=== PATIENT | male | born 1955 | race Caucasian/White ===

== ENCOUNTER → 2017-03-19 | Outpatient (CLI) | payer OTHER ==
[~2017-03-19] MED LIST: AMLO5TAB2 PO; ATOR40TA PO; BENA1TAB10 PO; METF10002 PO; REGADENOSON 0.4 MG/5 ML SYRINGE ONE; SITA100T PO; TADA10TA PO; WARF4TAB7 PO; WARF5TAB7 PO
== END | disposition home or self-care (01) ==
LOC: CFH 08:55
PROVIDERS: ATTEND Internal Medicine Cardiovascular Disease
DX: I25.10 Atherosclerotic heart disease of native coronary artery without angina pectoris (principal)
CPT/HCPCS: 78452; 93017; A9502; J2785

== ENCOUNTER 2017-05-27 04:30 | Inpatient (IN) | payer OTHER ==
[~2017-05-27] VITALS: Ht 190.5 cm; Wt 86.5 kg
[~2017-05-27 04:30] MED LIST changes: -REGADENOSON 0.4 MG/5 ML SYRINGE ONE
[2017-05-27] MEDS ORDERED: IBUPROFEN 200 MG TABLET PO ONE (05:00)
[2017-05-27] MEDS ORDERED: OXYcodone/APAP 5/325MG TABLET PO ONE (05:00)
[2017-05-27] MEDS ORDERED: DIAZEPAM 5 MG TABLET PO ONE (05:00)
[2017-05-27] MEDS ORDERED: DIAZEPAM 5 MG TABLET ONE (05:01)
[2017-05-27] MEDS ORDERED: IBUPROFEN 200 MG TABLET ONE (05:02)
[2017-05-27] MEDS ORDERED: OXYcodone/APAP 5/325MG TABLET ONE (05:02)
[2017-05-27 06:11] LABS: HEMATOCRIT 47.4 % (39.2-51.8); WHITE BLOOD COUNT 14.6 x10^3/uL (3.4-10)
[2017-05-27 06:22] LABS: BLOOD UREA NITROGEN 14 mg/dL (7-18)
[2017-05-27] MEDS ORDERED: HEPARIN 5,000 UNITS/ML, 1ML IVPush ONE (08:30)
[2017-05-27] MEDS ORDERED: HEPARIN 25,000 UNITS/500ML PMX 500 ML IV PRN (09:00)
[2017-05-27] MEDS ORDERED: HEPARIN 5,000 UNITS/ML, 1ML IV PRN (09:00)
[2017-05-27] MEDS ORDERED: LABETALOL 5MG/ML, 20ML IVPush ONE (09:00)
[2017-05-27] MEDS ORDERED: HYDROmorphone 1 MG/ML, 1ML IV ONE (09:00)
[2017-05-27] MEDS ORDERED: HEPARIN 5,000 UNITS/ML, 1ML IV ONE (09:00)
[2017-05-27] MEDS ORDERED: HEPARIN 5,000 UNITS/ML, 1ML ONE (09:08)
[2017-05-27] MEDS ORDERED: HYDROmorphone 1 MG/ML, 1ML ONE (09:09)
[2017-05-27] MEDS ORDERED: LABETALOL 5MG/ML, 20ML ONE (09:09)
[2017-05-27] MEDS ORDERED: HEPARIN 25,000 UNITS/500ML PMX 500 ML ONE ×2 (09:22→13:24)
[2017-05-27] MEDS ORDERED: LABETALOL 5MG/ML, 20ML IVPush PRN (09:30)
[2017-05-27] MEDS ORDERED: hydrALAzine 20 MG/ML, 1ML IV PRN (09:30)
[2017-05-27] MEDS ORDERED: NS + 20MEQ KCL 1,000 ML IV SCH (09:46)
[2017-05-27] MEDS ORDERED: HYDROcodone/APAP 5/325 TABLET PO PRN (10:00)
[2017-05-27] MEDS ORDERED: ONDANSETRON 2MG/ML, 2ML IVPush PRN ×2 (10:00→15:00)
[2017-05-27] MEDS ORDERED: POLYETHYLENE GLYCOL 17 GM PACKET PO PRN (10:00)
[2017-05-27] MEDS ORDERED: ACETAMINOPHEN 325 MG TABLET PO PRN (10:00)
[2017-05-27] MEDS ORDERED: morphine SULFATE 10 MG/ML, 1ML IVPush PRN ×2 (10:00→15:00)
[2017-05-27] MEDS ORDERED: DOCUSATE 100 MG CAPSULE PO PRN (10:00)
[2017-05-27] MEDS: INSULIN ASPART 100 UNITS/ML, PEN SQ-INSULIN SCH ×3 (11:00→20:25)
[2017-05-27] MEDS ORDERED: LIDOCAINE 2%, 20ML ONE (12:22)
[2017-05-27] MEDS ORDERED: ALTEPLASE 10 MG in SODIUM CHLORIDE 0.9% 90 ML IV SCH (12:30)
[2017-05-27] MEDS ORDERED: PROTAMINE SULFATE 10 MG/ML, 25ML ONE (12:48)
[2017-05-27] MEDS ORDERED: MIDAZOLAM 1 MG/ML, 5ML ONE (12:48)
[2017-05-27] MEDS ORDERED: NALOXONE 1 MG/ML, 2ML ONE (12:49)
[2017-05-27] MEDS ORDERED: HEPARIN 1,000 UNITS/ML, 10ML ONE (12:49)
[2017-05-27] MEDS ORDERED: FLUMAZENIL 0.1 MG/1 ML, 5ML ONE (12:49)
[2017-05-27] MEDS ORDERED: FENTANYL PF 100 MCG/2ML ONE (12:49)
[2017-05-27] MEDS ORDERED: ALTEPLASE IV ONE (13:30)
[2017-05-27 13:32] VITALS: BP 158/79
[2017-05-27] MEDS ORDERED: hydrALAzine 20 MG/ML, 1ML ONE (13:45)
[2017-05-27] MEDS: AMLODIPINE 5 MG TABLET PO SCH (14:46)
[2017-05-27] MEDS: SODIUM CHLORIDE 0.9% 1,000 ML IV SCH (14:50)
[2017-05-27] MEDS: ALTEPLASE 10 MG in SODIUM CHLORIDE 0.9% 90 ML IV SCH (15:00)
[2017-05-27] MEDS: HEPARIN 25,000 UNITS/500ML PMX 500 ML IV SCH ×2 (15:00)
[2017-05-27] MEDS: CLINDAMYCIN PMX 900MG/50ML 50 ML IV SCH ×2 (15:24→23:57)
[2017-05-27 15:56] LABS: HEMATOCRIT 47.3 % (39.2-51.8); HEMOGLOBIN 15.6 g/dL (13.7-18.0); WHITE BLOOD COUNT 10.1 x10^3/uL (3.4-10)
[2017-05-27] MEDS: HYDROcodone/APAP 5/325 TABLET PO PRN ×3 (16:04→23:57)
[2017-05-27] MEDS: ATORVASTATIN 40 MG TABLET PO SCH (19:46)
[2017-05-27 20:56] LABS: HEMATOCRIT 45.4 % (39.2-51.8); HEMOGLOBIN 14.9 g/dL (13.7-18.0)
[2017-05-28 03:07] LABS: HEMATOCRIT 45.4 % (39.2-51.8); HEMOGLOBIN 14.9 g/dL (13.7-18.0); WHITE BLOOD COUNT 11.1 x10^3/uL (3.4-10)
[2017-05-28] MEDS: SODIUM CHLORIDE 0.9% 1,000 ML IV SCH ×2 (03:07→15:08)
[2017-05-28] MEDS: HYDROcodone/APAP 5/325 TABLET PO PRN ×6 (03:08→21:18)
[2017-05-28 04:16] VITALS: BP 145/68
[2017-05-28 04:54] LABS: HEMATOCRIT 44.2 % (39.2-51.8); HEMOGLOBIN 14.7 g/dL (13.7-18.0); WHITE BLOOD COUNT 10.8 x10^3/uL (3.4-10)
[2017-05-28 05:16] LABS: ASPARTATE AMINO TRANSFERASE 211 U/L (15-37); BLOOD UREA NITROGEN 9 mg/dL (7-18)
[2017-05-28] MEDS: CLINDAMYCIN PMX 900MG/50ML 50 ML IV SCH ×2 (06:01→15:08)
[2017-05-28] MEDS: ALTEPLASE 10 MG in SODIUM CHLORIDE 0.9% 90 ML IV SCH ×2 (06:02→06:41)
[2017-05-28] MEDS: INSULIN ASPART 100 UNITS/ML, PEN SQ-INSULIN SCH ×4 (06:04→21:18)
[2017-05-28] MEDS: SENNA/DOCUSATE TABLET PO SCH (07:23)
[2017-05-28] MEDS ORDERED: SITAGLIPTIN 50MG TABLET PO SCH (09:00)
[2017-05-28 09:03] LABS: HEMATOCRIT 45.4 % (39.2-51.8); HEMOGLOBIN 15.1 g/dL (13.7-18.0); WHITE BLOOD COUNT 10.6 x10^3/uL (3.4-10)
[2017-05-28] MEDS: AMLODIPINE 5 MG TABLET PO SCH (09:16)
[2017-05-28 14:50] LABS: HEMATOCRIT 47.8 % (39.2-51.8); HEMOGLOBIN 15.8 g/dL (13.7-18.0)
[2017-05-28] MEDS: HEPARIN 25,000 UNITS/500ML PMX 500 ML IV SCH ×2 (15:00)
[2017-05-28] MEDS ORDERED: FLUMAZENIL 0.1 MG/1 ML, 5ML ONE (15:30)
[2017-05-28] MEDS ORDERED: MIDAZOLAM 1 MG/ML, 5ML ONE (15:30)
[2017-05-28] MEDS ORDERED: FENTANYL PF 100 MCG/2ML ONE (15:30)
[2017-05-28] MEDS ORDERED: NALOXONE 1 MG/ML, 2ML ONE (15:30)
[2017-05-28] MEDS ORDERED: hydrALAzine 20 MG/ML, 1ML ONE (16:28)
[2017-05-28] MEDS: SODIUM ACETATE 100 MEQ in DEXTROSE 5% 1,000 ML IV SCH (17:49)
[2017-05-28 21:06] LABS: HEMATOCRIT 48.8 % (39.2-51.8); WHITE BLOOD COUNT 11.4 x10^3/uL (3.4-10)
[2017-05-28] MEDS: ATORVASTATIN 40 MG TABLET PO SCH (21:18)
[2017-05-29] MEDS: HYDROcodone/APAP 5/325 TABLET PO PRN ×4 (00:01→13:03)
[2017-05-29] MEDS: ALTEPLASE 10 MG in SODIUM CHLORIDE 0.9% 90 ML IV SCH (03:08)
[2017-05-29 03:12] LABS: HEMATOCRIT 43.4 % (39.2-51.8); HEMOGLOBIN 14.5 g/dL (13.7-18.0); WHITE BLOOD COUNT 8.4 x10^3/uL (3.4-10)
[2017-05-29 03:21] LABS: BLOOD UREA NITROGEN 8 mg/dL (7-18)
[2017-05-29] MEDS: SODIUM ACETATE 100 MEQ in DEXTROSE 5% 1,000 ML IV SCH ×2 (05:12→17:34)
[2017-05-29 06:02] VITALS: BP 110/65
[2017-05-29] MEDS: CLINDAMYCIN PMX 900MG/50ML 50 ML IV SCH ×4 (07:09→23:27)
[2017-05-29] MEDS: SENNA/DOCUSATE TABLET PO SCH (07:10)
[2017-05-29] MEDS: AMLODIPINE 5 MG TABLET PO SCH (07:10)
[2017-05-29] MEDS: INSULIN ASPART 100 UNITS/ML, PEN SQ-INSULIN SCH ×4 (07:10→21:12)
[2017-05-29 08:34] LABS: HIT LOT CART23835/KIT23844
[2017-05-29 08:42] LABS: HEMATOCRIT 43.3 % (39.2-51.8); HEMOGLOBIN 14.6 g/dL (13.7-18.0); WHITE BLOOD COUNT 9.4 x10^3/uL (3.4-10)
[2017-05-29 09:25] LABS: HIT OBC PASS; HIT RESULT NEGATIVE (NEGATIVE)
[2017-05-29] MEDS ORDERED: KETAMINE 10 MG/ML, 20ML ONE (10:10)
[2017-05-29] MEDS ORDERED: MIDAZOLAM 1 MG/ML, 2ML ONE (10:11)
[2017-05-29] MEDS ORDERED: FENTANYL PF 100 MCG/2ML ONE ×2 (10:11)
[2017-05-29] MEDS ORDERED: DEXAMETHASONE 4 MG/ML, 1ML ONE (10:42)
[2017-05-29] MEDS ORDERED: ONDANSETRON 2MG/ML, 2ML ONE (10:42)
[2017-05-29] MEDS ORDERED: PHENYLEPHRINE 10 MG/ML ONE (10:42)
[2017-05-29] MEDS ORDERED: CEFAZOLIN 1,000 MG ONE (10:42)
[2017-05-29] MEDS ORDERED: PROPOFOL 10 MG/ML, 20ML ONE (10:42)
[2017-05-29] MEDS ORDERED: ACETAMINOPHEN 325 MG TABLET PO PRN (12:00)
[2017-05-29] MEDS ORDERED: ONDANSETRON 2MG/ML, 2ML IVPush PRN (12:00)
[2017-05-29] MEDS ORDERED: MIDAZOLAM 1 MG/ML, 2ML IV PRN (12:00)
[2017-05-29] MEDS ORDERED: HYDROmorphone 1 MG/ML, 1ML IV PRN (12:00)
[2017-05-29] MEDS ORDERED: PROMETHAZINE 25 MG/ML, 1ML IV PRN (12:00)
[2017-05-29] MEDS ORDERED: FENTANYL PF 100 MCG/2ML IV PRN (12:00)
[2017-05-29] MEDS ORDERED: hydrALAzine 20 MG/ML, 1ML IV PRN (12:00)
[2017-05-29] MEDS ORDERED: LABETALOL 5MG/ML, 20ML IV PRN (12:00)
[2017-05-29] MEDS ORDERED: HYDROcodone/APAP 7.5-325MG/15ML UDC PO PRN (12:00)
[2017-05-29] MEDS ORDERED: MEPERIDINE/PF 25MG/0.5ML IVPush PRN (12:00)
[2017-05-29] MEDS ORDERED: EPHEDRINE 50 MG/ML, 1ML IVPush PRN (12:00)
[2017-05-29] MEDS: HEPARIN 25,000 UNITS/500ML PMX 500 ML IV PRN (13:49)
[2017-05-29] MEDS ORDERED: WARFARIN 5 MG TABLET PO-COUM SCH (18:00)
[2017-05-29] MEDS: ATORVASTATIN 40 MG TABLET PO SCH (21:11)
[2017-05-30] MEDS: SODIUM ACETATE 100 MEQ in DEXTROSE 5% 1,000 ML IV SCH (02:15)
[2017-05-30 03:17] LABS: HEMATOCRIT 42.3 % (39.2-51.8); HEMOGLOBIN 13.9 g/dL (13.7-18.0); WHITE BLOOD COUNT 11.4 x10^3/uL (3.4-10)
[2017-05-30 03:22] LABS: BLOOD UREA NITROGEN 11 mg/dL (7-18)
[2017-05-30 05:00] VITALS: BP 152/81
[2017-05-30] MEDS: ASPIRIN 81 MG TABLET EC PO SCH (06:29)
[2017-05-30] MEDS: INSULIN ASPART 100 UNITS/ML, PEN SQ-INSULIN SCH ×4 (06:32→20:37)
[2017-05-30] MEDS: OXYcodone 5 MG/5 ML ORAL.SOL UDC PO PRN ×2 (08:24→12:10)
[2017-05-30] MEDS: CLINDAMYCIN PMX 900MG/50ML 50 ML IV SCH ×2 (08:26→16:02)
[2017-05-30] MEDS: HEPARIN 25,000 UNITS/500ML PMX 500 ML IV PRN (09:54)
[2017-05-30] MEDS: AMLODIPINE 5 MG TABLET PO SCH (11:14)
[2017-05-30] MEDS ORDERED: HEPARIN 5,000 UNITS/ML, 1ML IV PRN (13:00)
[2017-05-30 13:45] VITALS: BP 140/87
[2017-05-30] MEDS ORDERED: WARFARIN 2 MG TABLET PO-COUM ONE (18:00)
[2017-05-30] MEDS: OXYcodone IR 5MG TABLET PO PRN (20:17)
[2017-05-30] MEDS: ATORVASTATIN 40 MG TABLET PO SCH (20:17)
[2017-05-30 20:31] VITALS: BP 138/76
[2017-05-31] MEDS: CLINDAMYCIN PMX 900MG/50ML 50 ML IV SCH ×2 (01:43→10:45)
[2017-05-31 02:00] VITALS: BP 135/72
[2017-05-31 05:49] LABS: HEMATOCRIT 42.6 % (39.2-51.8); HEMOGLOBIN 14.2 g/dL (13.7-18.0); WHITE BLOOD COUNT 14.2 x10^3/uL (3.4-10)
[2017-05-31] MEDS: ASPIRIN 81 MG TABLET EC PO SCH (06:15)
[2017-05-31 07:54] VITALS: BP 134/82
[2017-05-31] MEDS: AMLODIPINE 5 MG TABLET PO SCH (07:59)
[2017-05-31] MEDS: INSULIN ASPART 100 UNITS/ML, PEN SQ-INSULIN SCH ×4 (07:59→22:37)
[2017-05-31] MEDS: OXYcodone IR 5MG TABLET PO PRN ×3 (09:23→22:07)
[2017-05-31] MEDS ORDERED: POLYETHYLENE GLYCOL 17 GM PACKET PO PRN (15:30)
[2017-05-31] MEDS ORDERED: ONDANSETRON 2MG/ML, 2ML IVPush PRN (15:30)
[2017-05-31] MEDS ORDERED: LABETALOL 5MG/ML, 20ML IVPush PRN (15:30)
[2017-05-31 15:44] VITALS: BP 140/83
[2017-05-31] MEDS ORDERED: WARFARIN 2 MG TABLET PO-COUM SCH (18:00)
[2017-05-31 20:49] VITALS: BP 146/80
[2017-05-31] MEDS: ATORVASTATIN 40 MG TABLET PO SCH (22:07)
[2017-06-01 00:35] VITALS: BP 163/100
[2017-06-01 01:20] VITALS: BP 139/83
[2017-06-01 04:49] LABS: HEMATOCRIT 41.7 % (39.2-51.8); HEMOGLOBIN 13.9 g/dL (13.7-18.0); WHITE BLOOD COUNT 13.5 x10^3/uL (3.4-10)
[2017-06-01] MEDS: ASPIRIN 81 MG TABLET EC PO SCH (06:59)
[2017-06-01] MEDS: INSULIN ASPART 100 UNITS/ML, PEN SQ-INSULIN SCH ×4 (07:46→20:47)
[2017-06-01 07:47] VITALS: BP 132/81
[2017-06-01] MEDS: AMLODIPINE 5 MG TABLET PO SCH (09:37)
[2017-06-01 16:00] VITALS: BP 121/67
[2017-06-01] MEDS ORDERED: WARFARIN 2.5 MG TABLET PO-COUM SCH (18:00)
[2017-06-01 19:41] VITALS: BP 134/80
[2017-06-01] MEDS: ATORVASTATIN 40 MG TABLET PO SCH (20:42)
[2017-06-02] MEDS: OXYcodone IR 5MG TABLET PO PRN ×3 (00:22→22:17)
[2017-06-02] MEDS: ACETAMINOPHEN 325 MG TABLET PO PRN ×2 (00:22→22:17)
[2017-06-02 02:43] VITALS: BP 134/84
[2017-06-02 05:42] LABS: BLOOD UREA NITROGEN 15 mg/dL (7-18); HEMATOCRIT 41.5 % (39.2-51.8); HEMOGLOBIN 13.8 g/dL (13.7-18.0); WHITE BLOOD COUNT 11.7 x10^3/uL (3.4-10)
[2017-06-02] MEDS: ASPIRIN 81 MG TABLET EC PO SCH (06:03)
[2017-06-02] MEDS: INSULIN ASPART 100 UNITS/ML, PEN SQ-INSULIN SCH ×4 (07:33→20:35)
[2017-06-02] MEDS: AMLODIPINE 5 MG TABLET PO SCH (07:33)
[2017-06-02 07:35] VITALS: BP 139/81
[2017-06-02 15:57] VITALS: BP 134/76
[2017-06-02] MEDS ORDERED: WARFARIN 2 MG TABLET PO-COUM SCH (18:00)
[2017-06-02 19:25] VITALS: BP 144/82
[2017-06-02] MEDS: ATORVASTATIN 40 MG TABLET PO SCH (20:34)
[2017-06-03 01:23] VITALS: BP 145/80
[2017-06-03] MEDS: OXYcodone IR 5MG TABLET PO PRN ×4 (06:05→22:00)
[2017-06-03] MEDS: ASPIRIN 81 MG TABLET EC PO SCH (06:05)
[2017-06-03 07:46] VITALS: BP 124/72
[2017-06-03] MEDS: INSULIN ASPART 100 UNITS/ML, PEN SQ-INSULIN SCH ×4 (08:49→21:32)
[2017-06-03] MEDS: AMLODIPINE 5 MG TABLET PO SCH (08:49)
[2017-06-03 12:22] VITALS: BP 124/75
[2017-06-03] MEDS ORDERED: WARFARIN 2 MG TABLET PO-COUM ONE (18:00)
[2017-06-03 20:35] VITALS: BP 124/74
[2017-06-03] MEDS: ATORVASTATIN 40 MG TABLET PO SCH (21:31)
[2017-06-04] MEDS: OXYcodone IR 5MG TABLET PO PRN ×4 (02:39→21:43)
[2017-06-04 03:42] VITALS: BP 120/85
[2017-06-04] MEDS: ASPIRIN 81 MG TABLET EC PO SCH (06:04)
[2017-06-04] MEDS ORDERED: EPINEPHRINE 1 MG/ML, 1ML ONE (06:13)
[2017-06-04] MEDS ORDERED: BUPIVACAINE/PF 0.25% ONE (06:14)
[2017-06-04 06:24] LABS: HEMATOCRIT 39.5 % (39.2-51.8); HEMOGLOBIN 13.1 g/dL (13.7-18.0); WHITE BLOOD COUNT 10.3 x10^3/uL (3.4-10)
[2017-06-04 06:36] LABS: BLOOD UREA NITROGEN 16 mg/dL (7-18)
[2017-06-04] MEDS: INSULIN ASPART 100 UNITS/ML, PEN SQ-INSULIN SCH ×4 (07:23→21:42)
[2017-06-04 08:00] VITALS: BP 125/83
[2017-06-04] MEDS: AMLODIPINE 5 MG TABLET PO SCH (09:46)
[2017-06-04] MEDS ORDERED: MIDAZOLAM 1 MG/ML, 2ML ONE (13:42)
[2017-06-04] MEDS ORDERED: FENTANYL PF 100 MCG/2ML ONE (13:43)
[2017-06-04] MEDS ORDERED: PROPOFOL 10 MG/ML, 20ML ONE (14:14)
[2017-06-04] MEDS ORDERED: CEFAZOLIN 1,000 MG ONE (14:14)
[2017-06-04] MEDS ORDERED: PROMETHAZINE 25 MG/ML, 1ML IV PRN (14:30)
[2017-06-04] MEDS ORDERED: FENTANYL PF 100 MCG/2ML IV PRN (14:30)
[2017-06-04] MEDS ORDERED: HYDROmorphone 1 MG/ML, 1ML IV PRN (14:30)
[2017-06-04] MEDS ORDERED: ACETAMINOPHEN 325 MG TABLET PO PRN (14:30)
[2017-06-04] MEDS ORDERED: OXYcodone 5 MG/5 ML ORAL.SOL UDC PO PRN (14:30)
[2017-06-04] MEDS ORDERED: hydrALAzine 20 MG/ML, 1ML IV PRN (14:30)
[2017-06-04] MEDS ORDERED: OXYcodone 5 MG/5 ML ORAL.SOL UDC ONE (15:29)
[2017-06-04] MEDS ORDERED: WARFARIN 2 MG TABLET PO-COUM ONE (18:00)
[2017-06-04 19:54] VITALS: BP 123/74
[2017-06-04] MEDS: ATORVASTATIN 40 MG TABLET PO SCH (21:43)
[2017-06-04] MEDS: CEFAZOLIN PMX 2GM/50ML 50 ML IVPB SCH (21:43)
[2017-06-04 23:08] VITALS: BP 120/66
[2017-06-05 03:00] VITALS: BP 113/70
[2017-06-05] MEDS: CEFAZOLIN PMX 2GM/50ML 50 ML IVPB SCH ×2 (06:16→14:40)
[2017-06-05] MEDS: OXYcodone IR 5MG TABLET PO PRN ×3 (06:16→21:32)
[2017-06-05] MEDS: ASPIRIN 81 MG TABLET EC PO SCH (06:16)
[2017-06-05 07:45] VITALS: BP 116/69
[2017-06-05] MEDS: INSULIN ASPART 100 UNITS/ML, PEN SQ-INSULIN SCH ×4 (09:07→21:00)
[2017-06-05] MEDS: SITAGLIPTIN 50MG TABLET PO SCH (09:07)
[2017-06-05] MEDS: AMLODIPINE 5 MG TABLET PO SCH (09:07)
[2017-06-05 15:30] VITALS: BP 119/73
[2017-06-05 20:20] VITALS: BP 126/74
[2017-06-05] MEDS: ATORVASTATIN 40 MG TABLET PO SCH (21:32)
[2017-06-06 02:20] VITALS: BP 114/84
[2017-06-06] MEDS: OXYcodone IR 5MG TABLET PO PRN ×4 (02:42→14:49)
[2017-06-06] MEDS: ASPIRIN 81 MG TABLET EC PO SCH (06:36)
[2017-06-06] MEDS: INSULIN ASPART 100 UNITS/ML, PEN SQ-INSULIN SCH ×3 (06:36→16:54)
[2017-06-06 08:29] VITALS: BP 113/67
[2017-06-06] MEDS: SITAGLIPTIN 50MG TABLET PO SCH (08:54)
[2017-06-06] MEDS: AMLODIPINE 5 MG TABLET PO SCH (08:54)
[2017-06-06] MEDS ORDERED: OXYC5TAB3 PO (09:47)
[2017-06-06 15:52] VITALS: BP 146/91
[2017-06-06] MEDS ORDERED: WARFARIN 2 MG TABLET PO-COUM SCH (18:00)
== END 2017-06-06 17:58 | disposition home health service (06) | DRG 264 ==
LOC: ED 05:23 → 4EST 08:48 → SUATTDRO 09:25 → 4EST 11:16 → CCU 14:14 → 4NOR 05-30 13:42
PROVIDERS: ADMIT Family Medicine
PROC: 3E03317 Introduction of Other Thrombolytic into Peripheral Vein, Percutaneous Approach (ICD-10-PCS; principal; 2017-05-27)
PROC: B41D1ZZ Fluoroscopy of Aorta and Bilateral Lower Extremity Arteries using Low Osmolar Contrast (ICD-10-PCS; 2017-05-27)
PROC: B41G1ZZ Fluoroscopy of Left Lower Extremity Arteries using Low Osmolar Contrast (ICD-10-PCS; 2017-05-27)
PROC: B41F1ZZ Fluoroscopy of Right Lower Extremity Arteries using Low Osmolar Contrast (ICD-10-PCS; 2017-05-27)
PROC: 0KNT0ZZ Release Left Lower Leg Muscle, Open Approach (ICD-10-PCS; 2017-05-29)
PROC: 0KNT0ZZ Release Left Lower Leg Muscle, Open Approach (ICD-10-PCS; 2017-05-29)
PROC: 0KNT0ZZ Release Left Lower Leg Muscle, Open Approach (ICD-10-PCS; 2017-05-29)
PROC: 0KNT0ZZ Release Left Lower Leg Muscle, Open Approach (ICD-10-PCS; 2017-05-29)
PROC: B41F1ZZ Fluoroscopy of Right Lower Extremity Arteries using Low Osmolar Contrast (ICD-10-PCS; 2017-05-29)
PROC: B41G1ZZ Fluoroscopy of Left Lower Extremity Arteries using Low Osmolar Contrast (ICD-10-PCS; 2017-05-29)
PROC: 0JBP0ZZ Excision of Left Lower Leg Subcutaneous Tissue and Fascia, Open Approach (ICD-10-PCS; 2017-06-04)
DX: I74.3 Embolism and thrombosis of arteries of the lower extremities (principal); D68.69 Other thrombophilia; E87.1 Hypo-osmolality and hyponatremia; I48.2 Chronic atrial fibrillation; S81.802A Unspecified open wound, left lower leg, initial encounter; D64.9 Anemia, unspecified; E11.9 Type 2 diabetes mellitus without complications; I10 Essential (primary) hypertension; D72.829 Elevated white blood cell count, unspecified; F17.200 Nicotine dependence, unspecified, uncomplicated; I73.9 Peripheral vascular disease, unspecified; I99.8 Other disorder of circulatory system; X58.XXXA Exposure to other specified factors, initial encounter; Z79.01 Long term (current) use of anticoagulants; Z80.8 Family history of malignant neoplasm of other organs or systems; Z82.49 Family history of ischemic heart disease and other diseases of the circulatory system; Z83.3 Family history of diabetes mellitus; Z86.711 Personal history of pulmonary embolism; Z86.718 Personal history of other venous thrombosis and embolism; Z95.0 Presence of cardiac pacemaker; Z88.0 Allergy status to penicillin; Y93.89 Activity, other specified; Y92.89 Other specified places as the place of occurrence of the external cause; Y99.8 Other external cause status
CPT/HCPCS: 36415; 37211; 37213; 37214; 75716; 80048; 80053; 82040; 82550; 82962; 83735; 85025; 85520; 85610; 86022; 86850; 86900; 87081; 93005; 93306; 93922; 93925; 93970; 96365; 96375; 99156; 99157; J0171; J0690; J1100; J1170; J1644; J1815; J2250; J2405; J2704; J2720; J2997; J3010; J3490; J7070; C1751; C1769; C1894; J0360; J2270; J2310; J2370; J7030

== ENCOUNTER → 2017-06-11 | Outpatient (CLI) | payer OTHER ==
[~2017-06-11] MED LIST changes: +OXYC5TAB3 PO
== END | disposition home or self-care (01) ==
LOC: WOUND 08:49
PROVIDERS: ATTEND Internal Medicine
DX: T81.31XA Disruption of external operation (surgical) wound, not elsewhere classified, initial encounter (principal); E11.69 Type 2 diabetes mellitus with other specified complication; I48.2 Chronic atrial fibrillation; I10 Essential (primary) hypertension; Z87.891 Personal history of nicotine dependence; Z72.89 Other problems related to lifestyle; Z95.0 Presence of cardiac pacemaker; Z79.01 Long term (current) use of anticoagulants; Z86.718 Personal history of other venous thrombosis and embolism; E11.51 Type 2 diabetes mellitus with diabetic peripheral angiopathy without gangrene; Z48.01 Encounter for change or removal of surgical wound dressing; Y92.89 Other specified places as the place of occurrence of the external cause; Y83.8 Other surgical procedures as the cause of abnormal reaction of the patient, or of later complication, without mention of misadventure at the time of the procedure
CPT/HCPCS: 97606; 99215

== ENCOUNTER → 2017-06-18 | Outpatient (CLI) | payer OTHER | END | disposition home or self-care (01) | LOC: WOUND 08:31 | PROVIDERS: ATTEND Internal Medicine | DX: T81.31XD Disruption of external operation (surgical) wound, not elsewhere classified, subsequent encounter (principal); E11.51 Type 2 diabetes mellitus with diabetic peripheral angiopathy without gangrene; I48.2 Chronic atrial fibrillation; I10 Essential (primary) hypertension; Z79.01 Long term (current) use of anticoagulants; Z72.89 Other problems related to lifestyle; Z87.891 Personal history of nicotine dependence; Z86.718 Personal history of other venous thrombosis and embolism; Z95.0 Presence of cardiac pacemaker; Z48.01 Encounter for change or removal of surgical wound dressing; Y83.8 Other surgical procedures as the cause of abnormal reaction of the patient, or of later complication, without mention of misadventure at the time of the procedure | CPT/HCPCS: 11042; 11045; 97606 ==

== ENCOUNTER → 2017-06-25 | Outpatient (CLI) | payer OTHER | END | disposition home or self-care (01) | LOC: WOUND 08:47 | PROVIDERS: ATTEND Internal Medicine | DX: T81.31XD Disruption of external operation (surgical) wound, not elsewhere classified, subsequent encounter (principal); I10 Essential (primary) hypertension; I48.2 Chronic atrial fibrillation; E11.51 Type 2 diabetes mellitus with diabetic peripheral angiopathy without gangrene; F17.210 Nicotine dependence, cigarettes, uncomplicated; Z79.01 Long term (current) use of anticoagulants; Z72.89 Other problems related to lifestyle; Z95.0 Presence of cardiac pacemaker; Z86.718 Personal history of other venous thrombosis and embolism; Z86.711 Personal history of pulmonary embolism; Y83.8 Other surgical procedures as the cause of abnormal reaction of the patient, or of later complication, without mention of misadventure at the time of the procedure | CPT/HCPCS: 11042; 11045; 97606 ==

== ENCOUNTER → 2017-07-02 | Outpatient (CLI) | payer OTHER | END | disposition home or self-care (01) | LOC: WOUND 08:45 | PROVIDERS: ATTEND Internal Medicine | DX: T81.31XD Disruption of external operation (surgical) wound, not elsewhere classified, subsequent encounter (principal); E11.69 Type 2 diabetes mellitus with other specified complication; E11.51 Type 2 diabetes mellitus with diabetic peripheral angiopathy without gangrene; I48.2 Chronic atrial fibrillation; Z86.718 Personal history of other venous thrombosis and embolism; Z86.711 Personal history of pulmonary embolism; Z79.01 Long term (current) use of anticoagulants; Z72.89 Other problems related to lifestyle; Z95.0 Presence of cardiac pacemaker; F17.210 Nicotine dependence, cigarettes, uncomplicated; Y83.8 Other surgical procedures as the cause of abnormal reaction of the patient, or of later complication, without mention of misadventure at the time of the procedure | CPT/HCPCS: 11042; 11045; 97606 ==

== ENCOUNTER → 2017-07-09 | Outpatient (CLI) | payer OTHER | END | disposition home or self-care (01) | LOC: WOUND 08:27 | PROVIDERS: ATTEND Internal Medicine | DX: T81.31XD Disruption of external operation (surgical) wound, not elsewhere classified, subsequent encounter (principal); I48.2 Chronic atrial fibrillation; E11.51 Type 2 diabetes mellitus with diabetic peripheral angiopathy without gangrene; I10 Essential (primary) hypertension; Z79.01 Long term (current) use of anticoagulants; Z86.718 Personal history of other venous thrombosis and embolism; Z86.711 Personal history of pulmonary embolism; Z87.891 Personal history of nicotine dependence; Z95.0 Presence of cardiac pacemaker; Z72.89 Other problems related to lifestyle; Y83.8 Other surgical procedures as the cause of abnormal reaction of the patient, or of later complication, without mention of misadventure at the time of the procedure | CPT/HCPCS: 11043; 11046; 97606 ==

== ENCOUNTER → 2017-07-23 | Outpatient (CLI) | payer OTHER | END | disposition home or self-care (01) | LOC: WOUND 08:24 | PROVIDERS: ATTEND Internal Medicine | DX: T81.31XD Disruption of external operation (surgical) wound, not elsewhere classified, subsequent encounter (principal); E11.51 Type 2 diabetes mellitus with diabetic peripheral angiopathy without gangrene; I48.2 Chronic atrial fibrillation; I10 Essential (primary) hypertension; Z87.891 Personal history of nicotine dependence; Z72.89 Other problems related to lifestyle; Z86.718 Personal history of other venous thrombosis and embolism; Z95.0 Presence of cardiac pacemaker; Y83.8 Other surgical procedures as the cause of abnormal reaction of the patient, or of later complication, without mention of misadventure at the time of the procedure | CPT/HCPCS: 97597; 97598 ==

== ENCOUNTER → 2017-07-30 | Outpatient (CLI) | payer OTHER | END | disposition home or self-care (01) | LOC: WOUND 08:26 | PROVIDERS: ATTEND Internal Medicine | DX: T81.31XD Disruption of external operation (surgical) wound, not elsewhere classified, subsequent encounter (principal); I48.2 Chronic atrial fibrillation; E11.51 Type 2 diabetes mellitus with diabetic peripheral angiopathy without gangrene; I10 Essential (primary) hypertension; Z86.718 Personal history of other venous thrombosis and embolism; Z95.0 Presence of cardiac pacemaker; Z72.89 Other problems related to lifestyle; Z87.891 Personal history of nicotine dependence; Y83.8 Other surgical procedures as the cause of abnormal reaction of the patient, or of later complication, without mention of misadventure at the time of the procedure | CPT/HCPCS: 97597; 97598 ==

== ENCOUNTER → 2017-08-06 | Outpatient (CLI) | payer OTHER | END | disposition home or self-care (01) | LOC: WOUND 08:30 | PROVIDERS: ATTEND Internal Medicine Cardiovascular Disease | DX: T81.31XD Disruption of external operation (surgical) wound, not elsewhere classified, subsequent encounter (principal); I48.2 Chronic atrial fibrillation; Z48.01 Encounter for change or removal of surgical wound dressing; I10 Essential (primary) hypertension; E11.51 Type 2 diabetes mellitus with diabetic peripheral angiopathy without gangrene; Z87.891 Personal history of nicotine dependence; Z86.711 Personal history of pulmonary embolism; Z79.01 Long term (current) use of anticoagulants; Z86.718 Personal history of other venous thrombosis and embolism; Z95.0 Presence of cardiac pacemaker; Z72.89 Other problems related to lifestyle; Y83.8 Other surgical procedures as the cause of abnormal reaction of the patient, or of later complication, without mention of misadventure at the time of the procedure | CPT/HCPCS: 97605 ==

== ENCOUNTER → 2017-08-20 | Outpatient (CLI) | payer OTHER | END | disposition home or self-care (01) | LOC: WOUND 08:32 | PROVIDERS: ATTEND Internal Medicine | DX: T81.31XD Disruption of external operation (surgical) wound, not elsewhere classified, subsequent encounter (principal); I48.2 Chronic atrial fibrillation; I10 Essential (primary) hypertension; E11.51 Type 2 diabetes mellitus with diabetic peripheral angiopathy without gangrene; F17.210 Nicotine dependence, cigarettes, uncomplicated; Z86.718 Personal history of other venous thrombosis and embolism; Z79.01 Long term (current) use of anticoagulants; Z95.0 Presence of cardiac pacemaker; Z72.89 Other problems related to lifestyle; Z86.711 Personal history of pulmonary embolism; Y83.8 Other surgical procedures as the cause of abnormal reaction of the patient, or of later complication, without mention of misadventure at the time of the procedure | CPT/HCPCS: 11042; 11045 ==

== ENCOUNTER → 2017-08-27 | Outpatient (CLI) | payer OTHER | END | disposition home or self-care (01) | LOC: WOUND 08:30 | PROVIDERS: ATTEND Internal Medicine | DX: T81.31XD Disruption of external operation (surgical) wound, not elsewhere classified, subsequent encounter (principal); E11.51 Type 2 diabetes mellitus with diabetic peripheral angiopathy without gangrene; I48.2 Chronic atrial fibrillation; I10 Essential (primary) hypertension; Z79.01 Long term (current) use of anticoagulants; Z86.718 Personal history of other venous thrombosis and embolism; Z86.711 Personal history of pulmonary embolism; Z95.0 Presence of cardiac pacemaker; F17.210 Nicotine dependence, cigarettes, uncomplicated; Z72.89 Other problems related to lifestyle; Y83.8 Other surgical procedures as the cause of abnormal reaction of the patient, or of later complication, without mention of misadventure at the time of the procedure | CPT/HCPCS: 97597; 97598 ==

== ENCOUNTER → 2017-09-03 | Outpatient (CLI) | payer OTHER | END | disposition home or self-care (01) | LOC: WOUND 08:30 | PROVIDERS: ATTEND Internal Medicine | DX: T81.31XD Disruption of external operation (surgical) wound, not elsewhere classified, subsequent encounter (principal); E11.51 Type 2 diabetes mellitus with diabetic peripheral angiopathy without gangrene; I48.2 Chronic atrial fibrillation; I10 Essential (primary) hypertension; Z79.01 Long term (current) use of anticoagulants; F17.210 Nicotine dependence, cigarettes, uncomplicated; Z72.89 Other problems related to lifestyle; Z86.718 Personal history of other venous thrombosis and embolism; Z86.711 Personal history of pulmonary embolism; Z95.0 Presence of cardiac pacemaker; Y83.8 Other surgical procedures as the cause of abnormal reaction of the patient, or of later complication, without mention of misadventure at the time of the procedure | CPT/HCPCS: 11042; 87070; 87077; 87186; 87205; 99215 ==

== ENCOUNTER → 2017-09-10 | Outpatient (CLI) | payer OTHER | END | disposition home or self-care (01) | LOC: WOUND 08:30 | PROVIDERS: ATTEND Family Medicine | DX: T81.31XD Disruption of external operation (surgical) wound, not elsewhere classified, subsequent encounter (principal); E11.8 Type 2 diabetes mellitus with unspecified complications; I48.2 Chronic atrial fibrillation; B95.62 Methicillin resistant Staphylococcus aureus infection as the cause of diseases classified elsewhere; I10 Essential (primary) hypertension; E11.51 Type 2 diabetes mellitus with diabetic peripheral angiopathy without gangrene; Z87.891 Personal history of nicotine dependence; Z79.01 Long term (current) use of anticoagulants; Z72.89 Other problems related to lifestyle; Z86.718 Personal history of other venous thrombosis and embolism; Z86.711 Personal history of pulmonary embolism; Z95.0 Presence of cardiac pacemaker; Z48.01 Encounter for change or removal of surgical wound dressing; Y83.8 Other surgical procedures as the cause of abnormal reaction of the patient, or of later complication, without mention of misadventure at the time of the procedure | CPT/HCPCS: 97597 ==

== ENCOUNTER → 2017-09-17 | Outpatient (CLI) | payer OTHER | END | disposition home or self-care (01) | LOC: WOUND 09:30 | PROVIDERS: ATTEND Internal Medicine | DX: T81.31XD Disruption of external operation (surgical) wound, not elsewhere classified, subsequent encounter (principal); I48.2 Chronic atrial fibrillation; E78.5 Hyperlipidemia, unspecified; I10 Essential (primary) hypertension; E11.51 Type 2 diabetes mellitus with diabetic peripheral angiopathy without gangrene; Z79.01 Long term (current) use of anticoagulants; Z48.01 Encounter for change or removal of surgical wound dressing; Z87.891 Personal history of nicotine dependence; Z86.718 Personal history of other venous thrombosis and embolism; Z86.711 Personal history of pulmonary embolism; Z95.0 Presence of cardiac pacemaker; Z72.89 Other problems related to lifestyle; Y83.8 Other surgical procedures as the cause of abnormal reaction of the patient, or of later complication, without mention of misadventure at the time of the procedure | CPT/HCPCS: 97597 ==

== ENCOUNTER → 2017-09-24 | Outpatient (CLI) | payer OTHER | END | disposition home or self-care (01) | LOC: WOUND 08:28 | PROVIDERS: ATTEND Internal Medicine | DX: T81.31XD Disruption of external operation (surgical) wound, not elsewhere classified, subsequent encounter (principal); I48.2 Chronic atrial fibrillation; I48.91 Unspecified atrial fibrillation; E78.5 Hyperlipidemia, unspecified; I10 Essential (primary) hypertension; F17.210 Nicotine dependence, cigarettes, uncomplicated; E11.51 Type 2 diabetes mellitus with diabetic peripheral angiopathy without gangrene; Z86.711 Personal history of pulmonary embolism; Z86.718 Personal history of other venous thrombosis and embolism; Z95.0 Presence of cardiac pacemaker; Z72.89 Other problems related to lifestyle; Z87.891 Personal history of nicotine dependence; Y83.8 Other surgical procedures as the cause of abnormal reaction of the patient, or of later complication, without mention of misadventure at the time of the procedure | CPT/HCPCS: 97597 ==

== ENCOUNTER → 2017-10-08 | Outpatient (CLI) | payer OTHER | END | disposition home or self-care (01) | LOC: WOUND 08:28 | PROVIDERS: ATTEND Internal Medicine | DX: T81.31XD Disruption of external operation (surgical) wound, not elsewhere classified, subsequent encounter (principal); I48.2 Chronic atrial fibrillation; E11.8 Type 2 diabetes mellitus with unspecified complications; E78.5 Hyperlipidemia, unspecified; E11.51 Type 2 diabetes mellitus with diabetic peripheral angiopathy without gangrene; I48.91 Unspecified atrial fibrillation; F17.210 Nicotine dependence, cigarettes, uncomplicated; Z72.89 Other problems related to lifestyle; Z86.718 Personal history of other venous thrombosis and embolism; Z86.711 Personal history of pulmonary embolism; Z95.0 Presence of cardiac pacemaker; Z79.01 Long term (current) use of anticoagulants; Y83.8 Other surgical procedures as the cause of abnormal reaction of the patient, or of later complication, without mention of misadventure at the time of the procedure | CPT/HCPCS: 99214 ==

== ENCOUNTER → 2017-12-30 | Outpatient (CLI) | payer OTHER ==
[~2017-12-30] MED LIST changes: +WARF-36 PO; -WARF5TAB7 PO
== END | disposition home or self-care (01) ==
LOC: CVU 09:52
PROVIDERS: ATTEND Surgery
DX: I70.203 Unspecified atherosclerosis of native arteries of extremities, bilateral legs (principal); I99.8 Other disorder of circulatory system; E78.5 Hyperlipidemia, unspecified; I10 Essential (primary) hypertension; I48.91 Unspecified atrial fibrillation; Z95.0 Presence of cardiac pacemaker
CPT/HCPCS: 93922; 93925

== ENCOUNTER → 2018-08-06 | Outpatient (CLI) | payer OTHER ==
[~2018-08-06] MED LIST changes: -AMLO5TAB2 PO; +AMLO5TAB7 PO; +WARF4TAB65 PO; -WARF4TAB7 PO
== END | disposition home or self-care (01) ==
LOC: CVU 08:50
PROVIDERS: ATTEND Surgery
DX: I74.3 Embolism and thrombosis of arteries of the lower extremities (principal); F17.210 Nicotine dependence, cigarettes, uncomplicated; E78.5 Hyperlipidemia, unspecified; I10 Essential (primary) hypertension; R73.03 Prediabetes
CPT/HCPCS: 93922; 93925